=== PATIENT | male | born 1985 | race Caucasian/White ===

== ENCOUNTER 2016-09-25 15:35 | Emergency (ER) | payer BC ==
--- NOTE | ~2016-09-25 | ER ---
PATIENT'S NAME: DEE DEE KOEHLER AGE: 30 Y [address] ROOM: [place] [address] LOCATION: [facility] ADMIT DATE: 09/25/2016 ER/Outpatient Report DISCHARGE DATE: 09/25/2016 FAMILY PHYSICIAN: PHYSICIAN, NO ATTENDING PHYSICIAN: Victor Hugo Cali Time of Evaluation: 1545 hours. HISTORY OF PRESENT ILLNESS: The patient is a 30-year-old male, who presents to the emergency room complaining of a left-sided sore throat, fever, some body aches, headache. Symptoms started today while he was at work. ALLERGIES: NO MEDICINAL ALLERGIES. HOME MEDICATIONS: 1. Coreg. 2. Lamictal. 3. Xanax. 4. Prozac. 5. Magnesium. MEDICAL HISTORY: He had a viral pneumonia in 2014; recently, he had a heart evaluation because of history of tachycardia. SURGERIES: Include vasectomy, carpal tunnel release, trigeminal surgery. SOCIAL HISTORY: Nonsmoker. Denies alcohol use. REVIEW OF SYSTEMS: GENERAL: Fevers today. HEENT: Includes headache but most of his complaint is sore throats, especially to the left side. He also has a tender node on that side. RESPIRATORY: No cough or shortness of breath. GASTROINTESTINAL: Denies nausea or vomiting. GENITOURINARY: No flank pain. No dysuria. SKIN: No recent rash. PHYSICAL EXAMINATION: VITAL SIGNS: He had a temperature of 102.2, his blood pressure 148/80, his respiratory rate 20, his O2 sats on room air 98%. PATIENT'S NAME: DEE DEE KOEHLER AGE: 30 Y [address] ROOM: [place] [address] LOCATION: [facility] ADMIT DATE: 09/25/2016 ER/Outpatient Report DISCHARGE DATE: 09/25/2016 FAMILY PHYSICIAN: PHYSICIAN, NO ATTENDING PHYSICIAN: Victor Hugo Cali GENERAL APPEARANCE: A white male. He was quite anxious but alert. HEAD: Normocephalic. EARS: Both TMs appeared normal. MOUTH: The left tonsil appeared slightly swollen. There was no presence of exudate. Oral membranes were moist. NECK: He had a tender anterior node on the left side. LUNGS: Sounded clear bilaterally. HEART: No murmurs noted. ABDOMEN: Soft, nontender. SKIN: Warm and dry. No eruptions noted. LABORATORY DATA AND X-RAYS: CBC: White count 12.8, hemoglobin 14.1. His ANC was 9.6. CMS had a glucose of 108, otherwise normal values. Two blood cultures were drawn. Strep screen rapid was negative. ASSESSMENT: Tonsillitis, left-side, with fever. PLAN: Amoxil 500 t.i.d., take until gone. Recommend saline gargles. Tylenol or ibuprofen for temperatures greater than 101. Follow up family doctor. Return to ER if concerns. DILLON MONTES FOR DO DOMINIQUE MINOR/devonte /[id number] d: 09/26/16 0000 t: 10/01/16 0914, OUTPATIENT REPORT
[2016-09-25 16:30] LABS: BASOPHIL % 0.2 %; EOSINOPHIL % 0.1 %; HEMATOCRIT 39.9 % (37.0-53.0); HEMOGLOBIN 14.1 g/dL (12.0-17.0); IMMATURE GRANULOCYTE % 0.3 %; LYMPHOCYTE % 15.8 %; MCH 29.4 pg (27.0-34.0); MCHC 35.3 gm/dL (32.0-36.5); MCV 83.3 fl (83.0-98.0); MONOCYTE # 1.1 K/uL (0.0-1.0); MONOCYTE % 8.5 %; MPV 9.6 fl (9.4-12.4); NEUTROPHIL # (ANC) 9.6 K/uL (1.4-9.0); NEUTROPHIL % 75.1 %; NRBC % 0 /100WBC (0-0.00); PLATELET COUNT 225 K/uL (150-450); RBC 4.79 M/uL (4.00-6.00); RDW-CV 12.2 % (11.9-14.6); WBC 12.8 K/uL (4.0-11.0)
[2016-09-25 16:50] LABS: ALBUMIN 4.1 gm/dL (3.5-5.0); ALK PHOS 89 IU/L (33-138); ALT 29 IU/L (12-78); AST 19 IU/L (10-40); BLOOD UREA NITROGEN 12 mg/dL (6-24); CALCIUM 9.4 mg/dL (8.5-10.5); CHLORIDE 104 mMol/L (96-110); CO2 25 mMol/L (22-32); ESTIMATED GFR (MDRD EQUATION) > 60; SODIUM 138 mMol/L (135-145); TOTAL BILIRUBIN 0.4 mg/dL (0.0-1.5); TOTAL PROTEIN 8.1 g/dL (6.0-8.4)
== END 2016-09-25 17:25 | disposition disaster alternative care site (69) ==
LOC: GMED 15:35
PROVIDERS: Physician Assistant Medical
DX: J03.90 Acute tonsillitis, unspecified (principal); R50.9 Fever, unspecified; R00.0 Tachycardia, unspecified; Z79.899 Other long term (current) drug therapy; Z98.890 Other specified postprocedural states

== ENCOUNTER 2016-09-26 04:54 | Emergency (ER) | payer BC ==
--- NOTE | ~2016-09-26 | ER ---
PATIENT'S NAME: DEE DEE KOEHELR [facility] AGE: 30 Y [address] ROOM: [place] [address] LOCATION: [facility] ADMIT DATE: 09/26/2016 ER/Outpatient Report DISCHARGE DATE: FAMILY PHYSICIAN: PHYSICIAN, NO ATTENDING PHYSICIAN: Frantz Rider This is an addendum to Dr. Rider's dictation. Please see his dictation for chief complaint, history of present illness, past medical history, past surgical history, social history, allergies, and medications allergies. Transfer of care was made to myself at shift change. I did discuss the case with Dr. Rider. I have asked to follow up on laboratory analysis. The patient was seen and evaluated by myself at shift change at 0605 hours. HISTORY OF PRESENT ILLNESS: The patient is reviewed by myself. He was seen here yesterday and started on amoxicillin. He has complained of sore throat and generalized body aches. The patient reports that he has just not been feeling well. He does have a moderate headache as well as a nonproductive cough. He just started a job 4 days ago and did have to call in sick. PAST MEDICAL HISTORY: 1. Hypertension. 2. Dyslipidemia. 3. Viral meningitis. 4. Bipolar left-sided nerve injury. PAST SURGICAL HISTORY: 1. Vasectomy. 2. Carpal tunnel surgery. 3. Spinal surgery. SOCIAL HISTORY: The patient denies any tobacco, alcohol, or illicit drug use. ALLERGIES: NO KNOWN DRUG ALLERGIES. MEDICATIONS: Please see list. PRIMARY CARE DOCTOR: None. REVIEW OF SYSTEMS: All systems are reviewed by myself and negative with the exception of those PATIENT'S NAME: DEE DEE KOEHLER [facility] AGE: 30 Y [address] ROOM: [place], [place] [address] LOCATION: [facility] ADMIT DATE: 09/26/2016 ER/Outpatient Report DISCHARGE DATE: FAMILY PHYSICIAN: PHYSICIAN, NO ATTENDING PHYSICIAN: Frantz Rider discussed in HPI and past medical history. PHYSICAL EXAMINATION: VITAL SIGNS: Weight 103 kg. Blood pressure 141/78, pulse 116, respiratory rate 22, temperature 102.2, oxygen saturation 95% on room air. GENERAL: The patient is a 30-year-old male, well developed and well nourished, appears in moderate acute distress. HEENT: Head: Normocephalic and atraumatic. Pupils are equal, round, and reactive to light. Extraocular motions are intact. Nares are patent bilaterally. TMs are clear. Oropharynx: The patient does have multiple exudate of pockets on the posterior pharynx in tonsillar pillars. Mucous membranes are moist. NECK: Supple. There is no nuchal rigidity. The patient has free range of motion of his neck. CARDIOVASCULAR: Tachycardic. No murmurs, rubs, or gallops. LUNGS: Clear to auscultation bilaterally. No wheezes, rales, or rhonchi. ABDOMEN: Soft, nontender, and nondistended. No rebound, rigidity, or guarding. MUSCULOSKELETAL: The patient moves all 4 extremities. Good muscle tone. SKIN: Warm and dry. LABORATORY DATA AND X-RAYS: Labs and x-rays are obtained. Two-view chest x-ray is obtained is interpreted by myself shows no acute process. CBC is unremarkable except for white blood cell count 12.6, which is improved from yesterday. Urinalysis is unremarkable. Lactate is normal. [place] was negative. CMP is unremarkable. CK is normal. CRP is 11. Procalcitonin 0.06. IMPRESSION: 1. Acute exudate of pharyngitis. 2. Initial visit. EMERGENCY DEPARTMENT COURSE: The patient was brought back to the emergency department room. He was initially seen and evaluated by Dr. Rider, shift change was made, and I did see and evaluate the patient. The patient was given a liter of normal saline as well as 100 mg of ibuprofen orally. This has improved his symptoms. He is given another liter of normal saline. I have discussed the results with the patient and his significant other who is at the bedside. I have recommended alternating Tylenol and ibuprofen. I have recommended continuing the amoxicillin. Work note as requested. This is provided for him. The patient does have excellent overall clinical appearance at this time. He has no nuchal rigidity. I have discussed, if there is concern for meningitis which I do think he is at low risk for that the only way to know for sure would be spinal tap. He has no interest in doing that at this time and I do think this PATIENT'S NAME: DEE DEE KOEHELR [facility] AGE: 30 Y [address] ROOM: [place], [place] [address] LOCATION: [facility] ADMIT DATE: 09/26/2016 ER/Outpatient Report DISCHARGE DATE: FAMILY PHYSICIAN: PHYSICIAN, NO ATTENDING PHYSICIAN: Frantz Rider is appropriate as he is at low risk as he has no nuchal rigidity and does have obvious exudates on his tonsils. I have discussed following up with primary care doctor in the [place]. I have discussed return to care instructions including worsening symptoms or other concerns to return to the emergency department as soon as possible. The patient is agreeable without further question at this time. DISPOSITION: The patient is discharged to home in good condition. DO MINERVA MINOR/kristianl /[id number] d: 09/26/16 0756 t: 10/01/16 0914, OUTPATIENT REPORT
--- NOTE | ~2016-09-26 | ER ---
PATIENT'S NAME: DEE DEE KOEHLER [facility] AGE: 30 Y [address] ROOM: [place] [address] LOCATION: [facility] ADMIT DATE: 09/26/2016 ER/Outpatient Report DISCHARGE DATE: FAMILY PHYSICIAN: PHYSICIAN, NO ATTENDING PHYSICIAN: Lio Aguilar Admission date and time documented on the medical record. I saw the patient at 0510 hours. CHIEF COMPLAINT: Fever, chills, sweats, rigors, cough, generalized malaise, myalgias, fatigue. HISTORY OF PRESENT ILLNESS: This patient is a 30-year-old male, who has had about 2-day history of fever, chills, sweats, rigors. He has had a dry nonproductive cough. He does not feel short of breath. He has generalized malaise, myalgias, and arthralgias. He is fatigued. No energy at all. He has sore throat, anterior neck gland pain. Headache. No chest pain, no abdominal pain. Little nauseated, but no vomiting, diarrhea. He does have some urinary frequency, but no dysuria, urgency, or hematuria. No joint swelling or redness. The patient does have a history of viral meningitis. He has bipolar disorder with anxiety, depression. No endocrine problems with diabetes or thyroid disease. HOME MEDICATIONS: The patient was started on amoxicillin about 12 hours ago. He has taken a couple doses 500 mg. LABORATORY DATA: Blood cultures were drawn at that time. Results are pending. Plated strep culture is pending. His rapid strep was negative. Slightly elevated white count. Normal CMS. HOME MEDICATIONS: See attached medication list. ALLERGIES: NONE. SOCIAL HISTORY: Nonsmoker, nondrinker. SIGNIFICANT PAST MEDICAL HISTORY: Dyslipidemia, hypertension, viral meningitis, bipolar disorder, some type of left-sided nerve injury. PATIENT'S NAME: DEE DEE KOEHLER [facility] AGE: 30 Y [address] ROOM: [place] [address] LOCATION: [facility] ADMIT DATE: 09/26/2016 ER/Outpatient Report DISCHARGE DATE: FAMILY PHYSICIAN: PHYSICIAN, NO ATTENDING PHYSICIAN: Lio Aguilar OPERATIONS: Vasectomy, carpal tunnel release, spinal surgery. REVIEW OF SYSTEMS: All systems reviewed by me are negative with the exception of those discussed in history of present illness. PHYSICAL EXAMINATION: VITAL SIGNS: Temperature 102.2, tympanic; pulse 116 and regular; respirations 22; blood pressure 141/78; O2 saturation on room air is 95%. HEAD: Normocephalic. Eyes: Clear. Ears: Clear TMs bilaterally. NOSE: Clear. Throat: Inflamed. No exudate. NECK: Tender anterior adenopathy. No posterior adenopathy. Range of motion full. No nuchal rigidity. No thyromegaly or cervical adenopathy. SPINE: Negative. LUNGS: Clear. No rales, rhonchi, or wheezes. Good air flow. HEART: Regular, tachy. Pulses are palpable. Mildly tachypneic. ABDOMEN: Soft, nondistended, nontender. Good bowel tones. No organomegaly or abnormal masses palpable. EXTREMITIES: Intact. NEUROVASCULAR: Intact. SKIN: Clear. No skin eruptions or rash. LABORATORY DATA: I did order CBC, CMS, sedimentation rate, CRP, lactate, procalcitonin, Monospot, CPK, and urinalysis, and 2-view chest x-ray. IMPRESSION: Febrile illness with generalized malaise, myalgias, arthralgias, headache, sore throat, anterior neck gland, lymph node pain, polyuria, dry cough, etiology uncertain at this time. Awaiting blood studies. PLAN: I did start the patient on IV normal saline, fluids. Gave him ibuprofen 800 mg orally for fever. Transferred the patient's care over to Dr. Cali at shift change. I asked Dr. Cali to follow up with the patient's laboratory, x-ray study, results, final diagnosis, and treatment plan. LIO AGUILAR MD SDS/modl PATIENT'S NAME: DEE DEE KOEHLER [facility] AGE: 30 Y [address] ROOM: [place], [place] [address] LOCATION: [facility] ADMIT DATE: 09/26/2016 ER/Outpatient Report DISCHARGE DATE: FAMILY PHYSICIAN: PHYSICIAN, NO ATTENDING PHYSICIAN: Lio Aguilar /[id number] d: 09/26/16699 t: 09/26/16 1822, OUTPATIENT REPORT
[2016-09-26 05:42] LABS: BILIRUBIN URINE NEGATIVE (NEGATIVE); BLOOD URINE NEGATIVE /UL (NEGATIVE); COLOR URINE YELLOW (YELLOW); GLUCOSE URINE NEGATIVE (NEGATIVE); KETONE URINE NEGATIVE (NEGATIVE); LEUKOCYTES URINE 25 /UL (NEGATIVE); NITRITE URINE NEGATIVE (NEGATIVE); PROTEIN URINE 30 mg/dL (NEGATIVE); TURBIDITY URINE CLEAR (CLEAR); UROBILINOGEN URINE 1 mg/dL (NORMAL)
[2016-09-26 05:52] LABS: BASOPHIL % 0.2 %; EOSINOPHIL % 0.1 %; HEMATOCRIT 42.2 % (37.0-53.0); HEMOGLOBIN 14.6 g/dL (12.0-17.0); IMMATURE GRANULOCYTE # 0.1 K/uL (0.0-0.3); IMMATURE GRANULOCYTE % 0.4 %; LYMPHOCYTE # 1.7 K/uL (0.8-4.0); LYMPHOCYTE % 13.2 %; MCH 29.4 pg (27.0-34.0); MCHC 34.6 gm/dL (32.0-36.5); MCV 85.1 fl (83.0-98.0); MONOCYTE # 1.3 K/uL (0.0-1.0); MPV 9.4 fl (9.4-12.4); NEUTROPHIL # (ANC) 9.6 K/uL (1.4-9.0); NEUTROPHIL % 76.1 %; NRBC % 0 /100WBC (0-0.00); PLATELET COUNT 223 K/uL (150-450); RBC 4.96 M/uL (4.00-6.00); RDW-CV 12.6 % (11.9-14.6); WBC 12.6 K/uL (4.0-11.0)
[2016-09-26 05:54] LABS: BACTERIA URINE NEGATIVE (NEGATIVE); EPITHELIAL URINE 0-2 #/HPF (NEGATIVE); RBC URINE NEGATIVE #/HPF (NEGATIVE)
[2016-09-26 06:10] LABS: ALBUMIN 3.7 gm/dL (3.5-5.0); ALK PHOS 88 IU/L (33-138); ALT 25 IU/L (12-78); ANION GAP 14.1 (10.0-19.0); AST 19 IU/L (10-40); BLOOD UREA NITROGEN 12 mg/dL (6-24); CHLORIDE 105 mMol/L (96-110); CO2 25 mMol/L (22-32); CPK 53 IU/L (35-332); ESTIMATED GFR (MDRD EQUATION) > 60; POTASSIUM 4.1 mMol/L (3.7-5.1); SODIUM 140 mMol/L (135-145); TOTAL BILIRUBIN 0.4 mg/dL (0.0-1.5); TOTAL PROTEIN 7.9 g/dL (6.0-8.4)
== END 2016-09-26 07:50 | disposition disaster alternative care site (69) ==
LOC: GMED 04:54
PROVIDERS: Emergency Medicine
DX: J02.9 Acute pharyngitis, unspecified (principal); E78.5 Hyperlipidemia, unspecified; I10 Essential (primary) hypertension; F31.9 Bipolar disorder, unspecified; M79.1 Myalgia; M25.50 Pain in unspecified joint; R35.8 Other polyuria; Z98.52 Vasectomy status; E78.00 Pure hypercholesterolemia, unspecified; Z98.890 Other specified postprocedural states; Z79.899 Other long term (current) drug therapy; Z79.2 Long term (current) use of antibiotics
CPT/HCPCS: J7030

== ENCOUNTER 2016-10-30 07:32 | Emergency (ER) | payer BC ==
--- NOTE | ~2016-10-30 | ER ---
PATIENT'S NAME: DEE DEE KOEHLER [facility] AGE: 30 Y [address] ROOM: [place] [address] LOCATION: [facility] ADMIT DATE: 10/30/2016 ER/Outpatient Report DISCHARGE DATE: 10/30/2016 FAMILY PHYSICIAN: PHYSICIAN, NO ATTENDING PHYSICIAN: Victor Hugo Cali TIME OF ARRIVAL: 0729 hours. TIME OF EVALUATION: 0730 hours. CHIEF COMPLAINT: Testicle pain. HISTORY OF PRESENT ILLNESS: The patient is a 30-year-old male who presents to the emergency department today with a chief complaint of testicle pain. He reports that it started about 7 days ago and has progressively continued. It is now moved to right testicle. He denies any penile discharge. No swelling or redness. The patient is sexually active with one partner. Denies any fevers or chills. No nausea or vomiting. No diarrhea or constipation. He has been on Levaquin. Pain is currently 6/10 in severity. PAST MEDICAL HISTORY: Hypertension, insomnia, and bipolar. PAST SURGICAL HISTORY: None. SOCIAL HISTORY: The patient denies any tobacco, alcohol, or illicit drug use. ALLERGIES: NO KNOWN DRUG ALLERGIES. MEDICATIONS: Please see list. PRIMARY CARE DOCTOR: None. REVIEW OF SYSTEMS: All systems are reviewed by myself and are negative with the exception of those discussed in the HPI and Past Medical History. PATIENT'S NAME: DEE DEE KOEHLER [facility] AGE: 30 Y [address] ROOM: [place] [address] LOCATION: [facility] ADMIT DATE: 10/30/2016 ER/Outpatient Report DISCHARGE DATE: 10/30/2016 FAMILY PHYSICIAN: PHYSICIAN, NO ATTENDING PHYSICIAN: Victor Hugo Cali PHYSICAL EXAMINATION: VITAL SIGNS: Weight 107.3 kg. Blood pressure 146/97, pulse 42, respiratory rate 16, temperature 98.8, and oxygen saturation 95% on room air. GENERAL: The patient is a 30-year-old male who appears stated age, in no acute distress at this time. HEENT: Head is normocephalic and atraumatic. Pupils are equal, round, and reactive to light. NECK: Supple. There is no nuchal rigidity. CARDIOVASCULAR: Regular rate and rhythm. No murmurs, rubs, or gallops. LUNGS: Clear to auscultation bilaterally. No wheezes, rales, or rhonchi. ABDOMEN: Soft, nontender, and nondistended. No rebound, rigidity, or guarding. GENITOURINARY: The patient does have cremasteric reflex intact bilaterally. No tenderness to palpation. No obvious evidence of epididymitis noted. SKIN: Warm and dry. LABORATORY AND X-RAY DATA: Urinalysis is unremarkable. Ultrasound of the testicles was obtained and is normal without evidence of testicular mass or torsion. There are some small bilateral hydroceles. Gonorrhea and chlamydia are pending. IMPRESSION: 1. Testicular pain with history of recent epididymitis. 2. Initial visit. EMERGENCY DEPARTMENT COURSE: The patient was brought back to the examination room. Seen and evaluated by myself. Urinalysis and imaging are obtained as described above. The patient is given 250 mg of Rocephin IM. He is also covered with doxycycline. I have asked that he continues his Levaquin. I have discussed return to care instructions including worsening symptoms or any other concerns, to return to the emergency department as soon as possible. I have discussed following up with [facility] in 5 to 7 days for re-evaluation. The patient is agreeable without further questions at this time. DISPOSITION,: The patient is discharged to home in good condition. DO MINERVA MINOR/devonte PATIENT'S NAME: DEE DEE KOEHLER [facility] AGE: 30 Y [address] ROOM: [place], [place] [address] LOCATION: [facility] ADMIT DATE: 10/30/2016 ER/Outpatient Report DISCHARGE DATE: 10/30/2016 FAMILY PHYSICIAN: PHYSICIAN, NO ATTENDING PHYSICIAN: Victor Hugo Cali /[id number] d: 10/30/16 1615 t: 10/31/16 1442, OUTPATIENT REPORT
[2016-10-30 08:07] LABS: BILIRUBIN URINE NEGATIVE (NEGATIVE); BLOOD URINE NEGATIVE /UL (NEGATIVE); COLOR URINE YELLOW (YELLOW); GLUCOSE URINE NEGATIVE (NEGATIVE); KETONE URINE NEGATIVE (NEGATIVE); LEUKOCYTES URINE NEGATIVE /UL (NEGATIVE); NITRITE URINE NEGATIVE (NEGATIVE); PROTEIN URINE NEGATIVE (NEGATIVE); SPEC GRAVITY URINE 1.025 (1.003-1.035); TURBIDITY URINE CLEAR (CLEAR); UROBILINOGEN URINE NORMAL (NORMAL)
== END 2016-10-30 09:26 | disposition disaster alternative care site (69) ==
LOC: GMED 07:32
PROVIDERS: Emergency Medicine
DX: N50.819 Testicular pain, unspecified (principal); F31.9 Bipolar disorder, unspecified; I10 Essential (primary) hypertension; Z79.899 Other long term (current) drug therapy; Z79.2 Long term (current) use of antibiotics
CPT/HCPCS: J0696

== ENCOUNTER 2016-11-04 | Emergency (ER) | payer BC ==
--- NOTE | ~2016-11-04 | ER ---
PATIENT'S NAME: DEE DEE KOEHLER [facility] AGE: 30 Y [address] ROOM: [place] [address] LOCATION: [facility] ADMIT DATE: 11/04/2016 ER/Outpatient Report DISCHARGE DATE: 11/04/2016 FAMILY PHYSICIAN: PHYSICIAN, NO ATTENDING PHYSICIAN: Ray Lei Time of Arrival: 0000 hours. Time of Evaluation: 0012 hours. IDENTIFICATION: A 30-year-old male with chief complaint of vomiting and headache. HISTORY OF PRESENT ILLNESS: The patient has had nausea, vomiting, headache, sweating, and chills. He feels like he has had heat exhaustion working in the hot environment at [employer]. He worked from 11:00 to 3:00 today. He went home and slept, and symptoms started after working. Currently, his headache is minimal; he said maybe 4 on a pain scale of 10. He has not fallen or hit his head. He has had no fever or chills. PAST MEDICAL HISTORY: ALLERGIES: NO KNOWN DRUG ALLERGIES. CURRENT MEDICATIONS: He could not recall what his medications were. 1. Lamictal 100 mg at bedtime. 2. Prozac 40 mg daily. 3. Trazodone 50 mg at bedtime. 4. Xanax p.r.n. 5. Coreg 25 mg. MEDICAL PROBLEMS: Hypertension, hyperlipidemia, and bipolar disorder. PRIOR SURGERIES: Thoracic spine surgery, carpal tunnel surgery, and vasectomy. SOCIAL HISTORY: The patient lives here in [place]. Works at [employer]. Tobacco use, denies. Alcohol use, denies. Drug use, denies. REVIEW OF SYSTEMS: All systems reviewed and negative other than what is noted in the HPI. PATIENT'S NAME: DEE DEE KOEHLER [facility] AGE: 30 Y [address] ROOM: [place] [address] LOCATION: [facility] ADMIT DATE: 11/04/2016 ER/Outpatient Report DISCHARGE DATE: 11/04/2016 FAMILY PHYSICIAN: PHYSICIAN, FRED ATTENDING PHYSICIAN: Ray Lei PHYSICAL EXAMINATION: VITAL SIGNS: Height 5 feet 9 inches, weight 106.3 kg. Blood pressure 156/91, pulse 84, respirations 18, temperature 97.7, and saturations 98% on room air. GENERAL: A 30-year-old male, in no acute distress. HEENT: Head: Normocephalic, atraumatic. Ears: TMs translucent, both ears. Eyes: Pupils equal and reactive to light and accommodation. Extraocular movements intact. Nose: Mucosa pink. No lesions. Mouth: No lesions. Pharynx benign. NECK: Supple. No lymphadenopathy. LUNGS: Clear to auscultation. HEART: Regular rate and rhythm. ABDOMEN: Soft, nondistended, nontender. SKIN: [place], warm, and dry. No lesions or rashes noted. NEURO: No focal deficit. EMERGENCY DEPARTMENT COURSE: An IV was initiated. The patient was given 1 L of normal saline and Zofran 4 mg for nausea. He felt a little bit better, but still felt like he had some cramping in his muscles. A second liter of IV fluids was given, and he was feeling much better. Chemistry panel is all within normal limits. Alcohol level less than 0.010. Amylase 25, lipase 329. CBC is normal. Carboxyhemoglobin 0.9. IMPRESSION: Heat exhaustion. PLAN: Clear liquids as tolerated. Advance diet as tolerated. Stay cool. Okay to return to work on 11/05. Follow up with physician of choice in 1 to 2 days. Follow up sooner if any problems or concerns. The patient understands and agrees, and all questions have been answered. RAY LEI MD CAR/modl /[id number] d: 11/04/16321 t: 11/04/16 194, OUTPATIENT REPORT
[2016-11-04 00:35] LABS: BASOPHIL % 0.5 %; EOSINOPHIL # 0.1 K/uL (0.0-0.5); EOSINOPHIL % 1.5 %; HEMOGLOBIN 14.6 g/dL (12.0-17.0); IMMATURE GRANULOCYTE % 0.3 %; LYMPHOCYTE # 2.2 K/uL (0.8-4.0); LYMPHOCYTE % 36.1 %; MCH 29.8 pg (27.0-34.0); MCHC 35.6 gm/dL (32.0-36.5); MCV 83.7 fl (83.0-98.0); MONOCYTE # 0.7 K/uL (0.0-1.0); MONOCYTE % 10.7 %; MPV 9.6 fl (9.4-12.4); NEUTROPHIL # (ANC) 3.1 K/uL (1.4-9.0); NEUTROPHIL % 50.9 %; NRBC % 0 /100WBC (0-0.00); PLATELET COUNT 232 K/uL (150-450); RDW-CV 12.3 % (11.9-14.6); WBC 6.2 K/uL (4.0-11.0)
[2016-11-04 00:52] LABS: ALBUMIN 3.8 gm/dL (3.5-5.0); ALK PHOS 80 IU/L (33-138); ALT 29 IU/L (12-78); ANION GAP 11.9 (10.0-19.0); AST 34 IU/L (10-40); BLOOD UREA NITROGEN 14 mg/dL (6-24); CHLORIDE 106 mMol/L (96-110); CO2 25 mMol/L (22-32); ESTIMATED GFR (MDRD EQUATION) > 60; POTASSIUM 3.9 mMol/L (3.7-5.1); SODIUM 139 mMol/L (135-145); TOTAL PROTEIN 7.7 g/dL (6.0-8.4)
[2016-11-04 00:56] LABS: TOTAL BILIRUBIN 0.3 mg/dL (0.0-1.5)
== END 2016-11-04 02:03 | disposition disaster alternative care site (69) ==
LOC: GMED
PROVIDERS: Family Medicine
DX: T67.5XXA Heat exhaustion, unspecified, initial encounter (principal); I10 Essential (primary) hypertension; F31.9 Bipolar disorder, unspecified; E78.5 Hyperlipidemia, unspecified; Z79.899 Other long term (current) drug therapy; Z98.52 Vasectomy status; Z98.890 Other specified postprocedural states; X58.XXXA Exposure to other specified factors, initial encounter
CPT/HCPCS: G0480; J2405; J7030

== ENCOUNTER 2016-12-16 04:04 | Emergency (ER) | payer BC ==
--- NOTE | ~2016-12-16 | ER ---
PATIENT'S NAME: DEE DEE KOEHLER [facility] AGE: 31 Y [address] ROOM: [place] [address] LOCATION: [facility] ADMIT DATE: 12/16/2016 ER/Outpatient Report DISCHARGE DATE: 12/16/2016 FAMILY PHYSICIAN: PHYSICIAN, NO ATTENDING PHYSICIAN: Reanna Luther Time of Arrival: 0404 hours. Time of Evaluation: 0420 hours. CHIEF COMPLAINT: This is a 31-year-old male who was previously healthy. He is in with a complaint of toothache. He also states he has had some pain and stinging with urination for the past several days. HISTORY OF PRESENT ILLNESS: He reports that he has had toothache off and on for several weeks. Over the past few days, it has gotten worse, and he has developed face pain, and he feels like it is swollen. PAST MEDICAL HISTORY: Significant for hypertension, hypercholesterolemia, bipolar disorder, depression, and anxiety. CURRENT MEDICATIONS: See list. REVIEW OF SYSTEMS: Otherwise negative. SOCIAL HISTORY: He is a nonsmoker. PHYSICAL EXAMINATION: GENERAL: An alert cooperative male, in no acute distress. VITAL SIGNS: Stable. SKIN: Warm and dry. Color was normal. HEAD, EARS, EYES, NOSE, AND THROAT: Revealed poor dentition. He did have minimal swelling on the right side of his face and cheek. There was no redness or induration or fluctuance. He had no trismus. NECK: Supple without adenopathy. HEART AND LUNGS: Normal. ABDOMEN: Soft. EXTREMITIES: Normal. NEUROLOGIC: Normal. PATIENT'S NAME: DEE DEE KOEHLER [facility] AGE: 31 Y [address] ROOM: [place] [address] LOCATION: [facility] ADMIT DATE: 12/16/2016 ER/Outpatient Report DISCHARGE DATE: 12/16/2016 FAMILY PHYSICIAN: PHYSICIAN, NO ATTENDING PHYSICIAN: Reanna Luther LABORATORY DATA: Urinalysis is negative. Urine for GC and chlamydia is pending. ASSESSMENT: Toothache with early facial cellulitis. PLAN: Levaquin 500 mg daily for 7 days. Followup with his regular doctor as needed. REANNA LUTHER MD JDB/modl /[id number] d: 12/17/1602 t: 12/19/16 0552, OUTPATIENT REPORT
[2016-12-16 04:45] LABS: BILIRUBIN URINE NEGATIVE (NEGATIVE); BLOOD URINE NEGATIVE /UL (NEGATIVE); COLOR URINE YELLOW (YELLOW); GLUCOSE URINE NEGATIVE (NEGATIVE); KETONE URINE NEGATIVE (NEGATIVE); LEUKOCYTES URINE 100 /UL (NEGATIVE); NITRITE URINE NEGATIVE (NEGATIVE); PROTEIN URINE NEGATIVE (NEGATIVE); SPEC GRAVITY URINE 1.025 (1.003-1.035); TURBIDITY URINE CLEAR (CLEAR); UROBILINOGEN URINE NORMAL (NORMAL)
[2016-12-16 05:10] LABS: BACTERIA URINE FEW (NEGATIVE); EPITHELIAL URINE 0-2 #/HPF (NEGATIVE); RBC URINE NEGATIVE #/HPF (NEGATIVE); WBC URINE 20-50 #/HPF (NEGATIVE)
== END 2016-12-16 05:18 | disposition disaster alternative care site (69) ==
LOC: GMED 04:04
PROVIDERS: Emergency Medicine
DX: K08.89 Other specified disorders of teeth and supporting structures (principal); L03.211 Cellulitis of face; I10 Essential (primary) hypertension; E78.00 Pure hypercholesterolemia, unspecified; F41.9 Anxiety disorder, unspecified; F31.9 Bipolar disorder, unspecified; Z79.899 Other long term (current) drug therapy; Z98.890 Other specified postprocedural states